=== PATIENT | female | born 1940 | race Caucasian/White ===

== ENCOUNTER → 2019-01-09 | Outpatient (CLI) | payer MEDICARE, OTHER ==
[~2019-01-09] MED LIST: ASPI81EC PO; BENAML10/5 PO; CIPR500 PO; COREG PO; HYDACE5 PO; IBUP600 PO; LISI20 PO; METF500 PO; PHENA200 PO; PRAV10 PO; [UNRECOGNIZED DRUG - OTHER] PO
[2019-01-09 16:37] LABS: Bilirubin, Urine Neg (Neg); Blood, Urine Neg (Neg); Glucose Qualitative, Urine Neg (Neg); Ketones, Urine Neg (Neg); Leukocyte Esterase, Urine Neg (Neg); Nitrite, Urine Neg (Neg); Protein, Urine Neg (Neg); Urobilinogen, Urine NORM (Normal)
[2019-01-09 17:08] LABS: Appearance, Urine Clear (Clear); Color, Urine Yellow (P-Yellow)
== END | disposition home or self-care (01) ==
LOC: LAB 11:30 → LAB SHORT 11:30
PROVIDERS: Obstetrics & Gynecology
DX: Z01.419 Encounter for gynecological examination (general) (routine) without abnormal findings (principal); R30.0 Dysuria
CPT/HCPCS: 81003

== ENCOUNTER → 2020-01-12 | Outpatient (CLI) | payer MEDICARE, OTHER ==
[2020-01-15 15:09] LABS: HPV 16 Negative (Negative); HPV 18 Negative (Negative); HPV OTHER HR TYPES Negative (Negative)
== END | disposition home or self-care (01) ==
LOC: LAB SHORT 14:45 → LAB 14:45
PROVIDERS: Obstetrics & Gynecology
DX: Z91.89 Other specified personal risk factors, not elsewhere classified (principal); Z85.3 Personal history of malignant neoplasm of breast
CPT/HCPCS: 87624; G0123

== ENCOUNTER → 2021-04-12 | Outpatient (CLI) | payer MEDICARE, OTHER ==
[~2021-04-12] MED LIST changes: +PROM25 PO
[2021-04-15 08:10] LABS: HPV 16 Negative (Negative); HPV 18 Negative (Negative); HPV OTHER HR TYPES Positive (Negative)
[2021-04-17 06:59] LABS: SPECIMEN ADEQUACY: CommentC
== END | disposition home or self-care (01) ==
LOC: LAB 16:16 → LAB SHORT 16:16
PROVIDERS: Obstetrics & Gynecology
DX: Z01.419 Encounter for gynecological examination (general) (routine) without abnormal findings (principal); Z85.3 Personal history of malignant neoplasm of breast
CPT/HCPCS: 87624; G0123

== ENCOUNTER 2021-05-03 13:17 | Emergency (ER) | payer MEDICARE, OTHER ==
[~2021-05-03] VITALS: Ht 152.4 cm; Wt 81.7 kg
[~2021-05-03 13:17] MED LIST changes: -PROM25 PO
[2021-05-03 13:45] LABS: BASOPHILS ABSOLUTE AUTO 0.04 K/mm3 (0.00-0.23); BASOPHILS PERCENT AUTO 1 % (0-2); EOSINOPHILS PERCENT AUTO 3 % (0-6); Hematocrit 40.6 % (33.0-51.0); Hemoglobin 13.3 g/dL (11.5-16.0); IMMATURE GRAN ABSOLUTE AUTO 0.02 K/mm3 (0.00-0.10); IMMATURE GRAN PERCENT AUTO 0 % (0-1); LYMPHOCYTES ABSOLUTE AUTO 1.34 K/mm3 (0.84-5.20); LYMPHOCYTES PERCENT AUTO 20 % (21-46); MONOCYTES ABSOLUTE AUTO 0.44 K/mm3 (0.16-1.47); MONOCYTES PERCENT AUTO 7 % (4-13); Mean Corpuscular HGB 28.9 pg (26.0-34.0); Mean Corpuscular HGB Conc 32.8 g/dL (31.5-36.5); Mean Corpuscular Volume 88 fL (80-100); Mean Platelet Volume 9.8 fL (9.1-12.4); NEUTROPHILS ABSOLUTE AUTO 4.62 K/mm3 (1.96-9.15); NEUTROPHILS PERCENT AUTO 69 % (41-73); Platelet Count 204 K/mm3 (150-400); RDW Coefficient Variation 13.1 % (11.7-14.2); RDW Standard Deviation 42.4 fL (35.1-46.3); White Blood Cell Count 6.66 K/mm3 (4.00-11.30)
[2021-05-03 14:06] LABS: Alanine Aminotransfer (ALT/SGP 24 U/L (12-78); Albumin, Blood 3.7 g/dL (3.4-5.0); Alk Phos 85 U/L (50-136); Anion Gap 6 mmol/L (6-16); Aspartate Aminotrans (AST/SGOT 26 U/L (12-37); Bilirubin, Total 0.6 mg/dL (0.1-1.0); Blood Urea Nitrogen 14 mg/dL (8-24); Bun/Creatinine Ratio 15.2 (12.0-20.0); CO2, Blood 25 mmol/L (21-32); Calcium, Blood 9.4 mg/dL (8.5-10.1); Chloride, Blood 106 mmol/L (98-108); Creatinine, Blood 0.92 mg/dL (0.40-1.00); Globulin, Blood 3.6 g/dL (2.2-4.0); Glomerular Filtration Rate >60 (60-); Glucose, Blood 191 mg/dL (70-99); Potassium, Blood 3.5 mmol/L (3.5-5.5); Sodium, Blood 137 mmol/L (136-145); Total Protein, Blood 7.3 g/dL (6.4-8.2)
[2021-05-03 14:45] LABS: International Normalized Ratio 1.02
[2021-05-03] MEDS ORDERED: PROM25 PO (16:50)
== END 2021-05-03 17:41 | disposition home or self-care (01) ==
LOC: ER 13:17
PROVIDERS: Emergency Medicine
DX: R42 Dizziness and giddiness (principal); R11.2 Nausea with vomiting, unspecified; E11.9 Type 2 diabetes mellitus without complications; I10 Essential (primary) hypertension; Z79.899 Other long term (current) drug therapy
CPT/HCPCS: 80053; 83690; 84484; 85025; 85610; 93005; 93010; 96374; 96375; 99284-25; A9270; J2550

== ENCOUNTER → 2022-04-19 | Outpatient (CLI) | payer MEDICARE, OTHER ==
[~2022-04-19] MED LIST changes: +PROM25 PO
[2022-04-24 10:08] LABS: HPV 16 Negative (Negative); HPV 18 Negative (Negative); HPV OTHER HR TYPES Negative (Negative)
== END | disposition home or self-care (01) ==
LOC: LAB 16:28 → LAB SHORT 16:28
PROVIDERS: Obstetrics & Gynecology
DX: R87.810 Cervical high risk human papillomavirus (HPV) DNA test positive (principal)
CPT/HCPCS: 87624; 88142

== ENCOUNTER 2023-06-01 13:28 | Emergency (ER) | payer MEDICARE, OTHER ==
[~2023-06-01] VITALS: Ht 152.4 cm; Wt 80.7 kg
[2023-06-01] MEDS ORDERED: Norco 5-325 Ta1 EACH PO ×2 (14:17→17:05)
[2023-06-01 15:53] VITALS: BP 165/87
== END 2023-06-01 15:54 | disposition home or self-care (01) ==
LOC: ER 13:28
DX: M75.01 Adhesive capsulitis of right shoulder (principal); E11.9 Type 2 diabetes mellitus without complications; I10 Essential (primary) hypertension
CPT/HCPCS: 99283; A9270

== ENCOUNTER → 2024-04-23 | Outpatient (CLI) | payer MEDICARE, OTHER ==
[~2024-04-23] MED LIST changes: +Norco 5-325 Ta1 EACH PO
[2024-05-07 09:29] LABS: HPV GENOTYPE 16 BY TMA Not Detected; HPV GENOTYPE 18/45 BY TMA Not Detected; HPV HIGH RISK BY TMA Detected; HPV SOURCE Cervical; HPVG SOURCE Cervical
== END ==
LOC: LAB SHORT 19:05 → LAB 19:05
PROVIDERS: Family Medicine
DX: Z01.419 Encounter for gynecological examination (general) (routine) without abnormal findings (principal)
CPT/HCPCS: 87624; 87625; G0123

== ENCOUNTER 2024-09-13 18:49 | Observation (INO) | payer MEDICARE, OTHER ==
[~2024-09-13] VITALS: Ht 152.4 cm; Wt 76.5 kg
[~2024-09-13 18:49] MED LIST changes: -COREG PO; +COREG12.5 M1 PO
[2024-09-13 19:37] LABS: BASOPHILS ABSOLUTE AUTO 0.04 K/mm3 (0.00-0.23); BASOPHILS PERCENT AUTO 1 % (0-2); EOSINOPHILS ABSOLUTE AUTO 0.16 K/mm3 (0.00-0.68); EOSINOPHILS PERCENT AUTO 2 % (0-6); Hematocrit 35.8 % (33.0-51.0); Hemoglobin 12.6 g/dL (11.5-16.0); IMMATURE GRAN ABSOLUTE AUTO 0.01 K/mm3 (0.00-0.10); IMMATURE GRAN PERCENT AUTO 0 % (0-1); LYMPHOCYTES ABSOLUTE AUTO 2.22 K/mm3 (0.84-5.20); LYMPHOCYTES PERCENT AUTO 31 % (21-46); MONOCYTES ABSOLUTE AUTO 0.57 K/mm3 (0.16-1.47); MONOCYTES PERCENT AUTO 8 % (4-13); Mean Corpuscular HGB 29.6 pg (26.0-34.0); Mean Corpuscular HGB Conc 35.2 g/dL (31.5-36.5); Mean Corpuscular Volume 84 fL (80-100); Mean Platelet Volume 9.7 fL (9.1-12.4); NEUTROPHILS ABSOLUTE AUTO 4.29 K/mm3 (1.96-9.15); NEUTROPHILS PERCENT AUTO 59 % (41-73); Platelet Count 222 K/mm3 (150-400); RDW Coefficient Variation 12.5 % (11.7-14.2); RDW Standard Deviation 38.4 fL (35.1-46.3); Red Blood Cell Count 4.25 M/mm3 (3.80-5.20); White Blood Cell Count 7.29 K/mm3 (4.00-11.30)
[2024-09-13 19:51] LABS: Source, Urine Clean Catch
[2024-09-13 19:53] LABS: Alanine Aminotransfer (ALT/SGP 20 U/L (12-78); Albumin, Blood 3.8 g/dL (3.4-5.0); Albumin/Globulin Ratio 1.2 (0.8-1.8); Alk Phos 75 U/L (50-136); Anion Gap 8 mmol/L (3-11); Aspartate Aminotrans (AST/SGOT 26 U/L (12-37); Bilirubin, Total 0.8 mg/dL (0.1-1.0); Blood Urea Nitrogen 15 mg/dL (8-24); Bun/Creatinine Ratio 17.4 (12.0-20.0); CO2, Blood 31 mmol/L (21-32); Calcium, Blood 9.9 mg/dL (8.5-10.1); Chloride, Blood 95 mmol/L (98-108); Creatinine, Blood 0.86 mg/dL (0.40-1.00); Ethanol (Alcohol), Blood, Med <3 mg/dL; Globulin, Blood 3.3 g/dL (2.2-4.0); Glomerular Filtration Rate 67 (60-); Glucose, Blood 120 mg/dL (70-99); Potassium, Blood 3.5 mmol/L (3.5-5.5); Sodium, Blood 130 mmol/L (136-145); Total Protein, Blood 7.1 g/dL (6.4-8.2)
[2024-09-13 19:56] LABS: International Normalized Ratio 1.09; Prothrombin Time Results 11.6 Sec (9.7-11.5)
[2024-09-13 19:58] LABS: Appearance, Urine Clear (Clear); Bilirubin, Urine Neg (Neg); Blood, Urine Neg (Neg); Glucose Qualitative, Urine Neg (Neg); Ketones, Urine Neg (Neg); Leukocyte Esterase, Urine Neg (Neg); Nitrite, Urine Neg (Neg); Protein, Urine Neg (Neg); Specific Gravity, Urine 1.005 (1.003-1.022); Urobilinogen, Urine NORM (Normal)
[2024-09-13 20:16] LABS: Color, Urine Pale Yellow (P-Yellow)
[2024-09-13 20:18] LABS: U Amphetamine Screen Not Detected; U Barbituate Screen Not Detected; U Benzodiazapine Screen Not Detected; U Buprenorphine Screen Not Detected; U Cannabinoids Screen Not Detected; U Cocaine Screen Not Detected; U Methadone Screen Not Detected; U Methamphetamine Screen Not Detected; U Opiates Screen Not Detected; U Oxycodone Screen Not Detected; U Phencyclidine Screen Not Detected
[2024-09-13] MEDS ORDERED: Aspirin 325 MG Tab PO ONE (21:00)
[2024-09-13] MEDS ORDERED: FLU VACC TS2024-25(6MOS UP)/PF 45 MCG/0.5 ML SYRINGE IM SCH (22:50)
[2024-09-13 23:06] LABS: LDL/HDL RATIO 1.3; Very Low Density Lipoprot Chol 19 mg/dL (6-32)
[2024-09-13 23:07] LABS: CHOL/HDL RATIO 2.5; Cholesterol 188 mg/dL (50-200); HDL Cholesterol 74 mg/dL (>39); Low Density Lipoprotein Chol 95 mg/dL (0-110); Triglycerides 95 mg/dL (30-160)
[2024-09-14 00:24] VITALS: BP 185/77
[2024-09-14] MEDS ORDERED: Lisinopril-Hct1 EAC4 PO (00:24)
[2024-09-14 05:39] LABS: Bun/Creatinine Ratio 18.8 (12.0-20.0); Calcium, Blood 9.8 mg/dL (8.5-10.1); Creatinine, Blood 0.85 mg/dL (0.40-1.00); Potassium, Blood 3.4 mmol/L (3.5-5.5)
--- NOTE | 2024-09-14 06:34 | NUR ---
SHIFT SUMMARY: DIANE IS A&OX4. VSS, PERMISSIVE HYPERTENSION PER HOSPITALIST'S H&P. SHE IS A STANDBY ASSIST FOR SAFETY, TOLERATING PO INTAKE WELL, AND HAS DENIED PAIN OR SYMPTOMS THIS SHIFT. IV TO L AC PATENT, TELE IN PLACE WITH NO EVENTS SINCE ADMISSION TO THE FLOOR. SHE IS MAINTAINING SATS >90% ORA. PT REPORTS THAT HER A WEEK AGO SATURDAY AND THAT SHE HAS BEEN FEELING STRESSED. SHE REPORTS BEING INDEPENDENT WITH ADLs AT BASELINE. SHE IS LYING IN BED WITH THE CALL LIGHT IN REACH, BED IN LOWEST POSITION. WILL GIVE REPORT TO DAY SHIFT RN.
[2024-09-14 07:40] VITALS: BP 151/71
[2024-09-14] MEDS ORDERED: Carvedilol 6.25 MG Tab PO SCH (08:00)
[2024-09-14] MEDS ORDERED: Potassium Chloride 20 MEQ TabCR PO ONE (08:00)
[2024-09-14] MEDS ORDERED: Lisinopril 20 MG Tab PO SCH (09:00)
[2024-09-14] MEDS ORDERED: Enoxaparin 40 MG/0.4 ML SYR SC SCH (09:00)
[2024-09-14] MEDS ORDERED: Aspirin 81 MG Chew PO SCH (09:00)
[2024-09-14] MEDS ORDERED: CENTRUM SILVER1 EAC2 PO (11:01)
[2024-09-14] MEDS ORDERED: THERA-D2000 UNIT PO (11:01)
[2024-09-14] MEDS ORDERED: ATOR20 PO (11:33)
[2024-09-14] MEDS ORDERED: CLOP75 PO (11:53)
[2024-09-14] MEDS ORDERED: Clopidogrel Bisulfate 75 MG Tab PO SCH (12:00)
--- NOTE | 2024-09-14 13:52 | NUR ---
DISCHARGE SUMMARY PT DC THIS SHIFT. DC INSTRUCTION GONE OVER WITH PT WHOM STATED UNDERSTANDING. PT DID REQUEST THE SWITCH OF PHARMACY THAT MEDICATION WHERE CALLED INTO TO BE SAFEWAY AND PHARMACY WAS FAXED. PT WAS ESCORTED TO PRIVATE VEHICLE VIA WHEELCHAIR BY REHABILITATION CLERK AND ACCOMPANIED BY A FAMILY MEMEBER.
== END 2024-09-14 13:45 | disposition home or self-care (01) ==
LOC: ER 18:49 → ERHOLD 18:50 → MEDS 18:50
PROVIDERS: Emergency Medicine; Student in an Organized Health Care Education/Training Program; ADMIT Student in an Organized Health Care Education/Training Program
DX: G45.9 Transient cerebral ischemic attack, unspecified (principal); E87.1 Hypo-osmolality and hyponatremia; I10 Essential (primary) hypertension; E78.5 Hyperlipidemia, unspecified; E11.9 Type 2 diabetes mellitus without complications; Z79.899 Other long term (current) drug therapy
CPT/HCPCS: 36415; 70450; 70496; 70498; 80048; 80053; 80061; 80320; 81003; 82947; 83036; 85025; 85610; 93005; 93010; 96372; 99285-25; A9270; G0378; J1650; Q9967

== ENCOUNTER 2025-02-23 17:58 | Observation (INO) | payer MEDICARE, OTHER ==
[~2025-02-23] VITALS: Ht 152.4 cm; Wt 76.2 kg
[~2025-02-23 17:58] MED LIST changes: +ATOR20 PO; +CENTRUM SILVER1 EAC2 PO; +CLOP75 PO; +Lisinopril-Hct1 EAC4 PO; +THERA-D2000 UNIT PO
[2025-02-23 18:59] LABS: BASOPHILS ABSOLUTE AUTO 0.04 K/mm3 (0.00-0.23); BASOPHILS PERCENT AUTO 1 % (0-2); EOSINOPHILS ABSOLUTE AUTO 0.12 K/mm3 (0.00-0.68); EOSINOPHILS PERCENT AUTO 2 % (0-6); Hematocrit 35.1 % (33.0-51.0); Hemoglobin 11.8 g/dL (11.5-16.0); IMMATURE GRAN ABSOLUTE AUTO 0.02 K/mm3 (0.00-0.10); IMMATURE GRAN PERCENT AUTO 0 % (0-1); LYMPHOCYTES ABSOLUTE AUTO 1.36 K/mm3 (0.84-5.20); LYMPHOCYTES PERCENT AUTO 21 % (21-46); MONOCYTES ABSOLUTE AUTO 0.53 K/mm3 (0.16-1.47); MONOCYTES PERCENT AUTO 8 % (4-13); Mean Corpuscular HGB 28.5 pg (26.0-34.0); Mean Corpuscular HGB Conc 33.6 g/dL (31.5-36.5); Mean Corpuscular Volume 85 fL (80-100); Mean Platelet Volume 9.1 fL (9.1-12.4); NEUTROPHILS PERCENT AUTO 68 % (41-73); Platelet Count 315 K/mm3 (150-400); Red Blood Cell Count 4.14 M/mm3 (3.80-5.20); White Blood Cell Count 6.37 K/mm3 (4.00-11.30)
[2025-02-23 19:34] LABS: Albumin, Blood 4.2 g/dL (3.4-5.0); Albumin/Globulin Ratio 1.2 (0.8-1.8); Bilirubin, Total 0.9 mg/dL (0.1-1.0); Bun/Creatinine Ratio 21.6 (12.0-20.0); Calcium, Blood 9.9 mg/dL (8.5-10.1); Creatinine, Blood 0.88 mg/dL (0.40-1.00); Globulin, Blood 3.6 g/dL (2.2-4.0); Potassium, Blood 3.6 mmol/L (3.5-5.5); Total Protein, Blood 7.8 g/dL (6.4-8.2)
[2025-02-23] MEDS ORDERED: Carvedilol 6.25 MG Tab PO SCH (21:00)
[2025-02-23] MEDS ORDERED: Clopidogrel Bisulfate 300 MG TABLET PO ONE (21:10)
[2025-02-23] MEDS ORDERED: Ondansetron HCl 2 MG / ML 2ML Vial IV PRN (21:10)
[2025-02-23] MEDS ORDERED: NS 1,000 ML IV SCH (21:15)
[2025-02-23 22:29] VITALS: BP 159/75
[2025-02-24] MEDS ORDERED: Acetaminophen 325 MG TABLET PO PRN (03:00)
[2025-02-24 04:11] VITALS: BP 116/59
--- NOTE | 2025-02-24 04:34 | NUR ---
SHIFT SUMMARY PATIENT IS ALERT IS ORIENTED. PATIENT HAS HAD NO ACUTE EVENTS THIS SHIFT. PATIENT HAS NO COMPLAINTS OF PAIN, NAUSEA, VOMITTING OR SOB. WHILE THIS RN WAS ON BREAK PATIENT HAD A FAINTING EPISODE ON THE TOILET. PATIENT WAS ESCORTED BACK TO BED AND VITAL SIGNS TAKEN AND WERE CONSISTENT WITH PREVIOUS BP READINGS. PATIENT CURRENTLY RESTING IN BED. BED LOCKED AND LOWEST POSITION. CALL LIGHT IN PLACE.
[2025-02-24 04:44] LABS: Hematocrit 30.8 % (33.0-51.0); Hemoglobin 10.3 g/dL (11.5-16.0); Mean Corpuscular HGB Conc 33.4 g/dL (31.5-36.5); Mean Corpuscular Volume 84 fL (80-100); Mean Platelet Volume 8.8 fL (9.1-12.4); Platelet Count 266 K/mm3 (150-400); RDW Coefficient Variation 13.1 % (11.7-14.2); RDW Standard Deviation 39.7 fL (35.1-46.3); Red Blood Cell Count 3.68 M/mm3 (3.80-5.20); White Blood Cell Count 5.28 K/mm3 (4.00-11.30)
[2025-02-24 05:05] LABS: Bun/Creatinine Ratio 24.9 (12.0-20.0); Calcium, Blood 8.9 mg/dL (8.5-10.1); Creatinine, Blood 0.8 mg/dL (0.40-1.00); Potassium, Blood 3.2 mmol/L (3.5-5.5)
[2025-02-24] MEDS ORDERED: Insulin Human Lispro 100 Units/ML 3ML Syringe SC SCH (07:30)
[2025-02-24 07:52] VITALS: BP 119/66
[2025-02-24] MEDS ORDERED: Potassium Chloride 20 MEQ TabCR PO ONE (08:20)
[2025-02-24] MEDS ORDERED: Clopidogrel Bisulfate 75 MG Tab PO SCH (09:00)
[2025-02-24] MEDS ORDERED: Enoxaparin 40 MG/0.4 ML SYR SC SCH (09:00)
[2025-02-24] MEDS ORDERED: Lisinopril 20 MG Tab PO SCH (09:00)
--- NOTE | 2025-02-24 09:51 | NUR ---
PT MARITZA FRIAS STATES "I MUST GET HOME TO MY DOGS, MY NICE LEFT HOUSE UNLOCKED AND IM AFRAID THEY WILL GET OUT." NOTIFIED DR GALLOWAY WHO ARRIVED AT [facility] ROOM TO DISCUSS TREATMENT
[2025-02-24] MEDS ORDERED: LISI20 PO (10:27)
--- NOTE | 2025-02-24 11:48 | NUR ---
DISCHARGE PT DISCHARGED AT 1230. PT REFUSED MRI TODAY, STATING SHE WAS NOT COMFORTABLE GETTING ON SINCE SHE HAS HAD A SHOULDER REPLACEMENT. DR. GALLOWAY NOTIFIED OF THIS BY BREAK NURSE. PT EDUCATED ON NEW MEDICATIONS AND FOLLOW UP APPPOINTMENTS NEEDED. NO CHANGES IN ASSESSMENT PRIOR TO DC. PT STATES NO FURTHER NEED FOR INSTRUCTIONS PRIOR TO DC. IV REMOEVED & INTACT. PT WHEELED OUT BY RN AND DRIVEN HOME BY SISTER IN LAW.
== END 2025-02-24 11:45 | disposition home or self-care (01) ==
LOC: ER 17:58 → MEDS 17:59 → ERHOLD 17:59 → MEDS 22:15 → ENPENDDIS 02-24 11:42 → MEDS 02-24 11:45
PROVIDERS: Emergency Medicine; Nurse Practitioner Acute Care; ADMIT Student in an Organized Health Care Education/Training Program
DX: G45.9 Transient cerebral ischemic attack, unspecified (principal); I10 Essential (primary) hypertension; E11.9 Type 2 diabetes mellitus without complications; E78.5 Hyperlipidemia, unspecified; Z79.899 Other long term (current) drug therapy
CPT/HCPCS: 36415; 70450; 80048; 80053; 82947; 85025; 85027; 93005; 93010; 93880; 96372; 99285-25; A9270; G0378; J1650; J7030

== ENCOUNTER → 2025-05-06 | Outpatient (CLI) | payer MEDICARE, OTHER ==
[2025-05-13 12:52] LABS: HPV GENOTYPE 16 BY TMA Not Detected; HPV GENOTYPE 18/45 BY TMA Not Detected; HPV HIGH RISK BY TMA Detected; HPV SOURCE Cervical/Vag; HPVG SOURCE Cervical/Vag
== END | disposition home or self-care (01) ==
LOC: LAB 18:18 → LAB SHORT 18:18
PROVIDERS: Family Medicine
DX: R87.810 Cervical high risk human papillomavirus (HPV) DNA test positive (principal)
CPT/HCPCS: 87624; 87625; 88142